=== PATIENT | male | born 1970 | race Hispanic/Latino ===

== ENCOUNTER 2018-01-13 13:58 | Emergency (ER) | payer SELFPAY ==
[2018-01-13] MEDS ORDERED: ISOVUE-370 76%-LOCM 1 ML ONE (14:10)
--- NOTE | 2018-01-13 15:38 | CT ---
CTA CHEST WITH CONTRAST: Date: 01/13/18 COMPARISON: None. HISTORY: Shortness of breath and chest pain since August 2017, worse in last 4 days. TECHNIQUE: Multiple contiguous axial images were obtained in a CTA of the chest with contrast per pulmonary embo lism protocol. 3D oblique MIP reformats and direct coronal reformats were performed. FINDINGS: The pulmonary arteries are well opacified without filing defects to suggest pulmonary emboli. The hea rt is normal in size without focal cardiac abnormality. No hilar or mediastinal lymphadenopathy. Atelectasis is seen in the right lung base. No pneumothorax or pleural effusion seen. No focal infilt rates are present. The liver demonstrates a slightly nodular contour which could be secondary to cirrhosis. The other vi sualized subdiaphragmatic structures are unremarkable. Degenerative changes are seen in the spine. The chest wall soft tissues are unremarkable. IMPRESSION: No evidence of pulmonary thromboembolism. POS: MIN
[2018-01-13 15:57] LABS: CKMB 2.1 ng/mL (0-6.6); Troponin I Less than 0.010 ng/mL (< 0.028)
--- NOTE | 2018-01-16 21:20 | EKG ---
Test Reason : SOB Blood Pressure : / mmHG Vent. Rate : 082 BPM Atrial Rate : 082 BPM P-R Int : 158 ms QRS Dur : 170 ms QT Int : 456 ms P-R-T Axes : 009 -76 029 degrees QTc Int : 532 ms Normal sinus rhythm Left axis deviation Right bundle branch block Inferior infarct , age undetermined Abnormal ECG Confirmed by LYNN CAST DO ([id number]), greeting card editor JESICA HERNANDEZ ([id number] on 01/16/2018 9:20:14 PM Referred By: Confirmed By:LYNN CAST DO
== END 2018-01-13 17:32 | disposition home or self-care (01) ==
LOC: ERS 13:58
DX: J06.9 Acute upper respiratory infection, unspecified (principal); E66.2 Morbid (severe) obesity with alveolar hypoventilation; I10 Essential (primary) hypertension; F31.9 Bipolar disorder, unspecified; Z87.891 Personal history of nicotine dependence; Z79.899 Other long term (current) drug therapy
CPT/HCPCS: 71275; 82553; 84484; 93005